=== PATIENT | female | born 1990 | race Caucasian/White ===

== ENCOUNTER 2019-11-24 11:54 | Observation (INO) ==
[2019-11-24 12:30] LABS: Amphetamine Screen,Urine Negative ng/mL (Cutoff=1000); Barbiturate Screen,Urine Negative ng/mL (Cutoff=200); Benzodiazepines Screen,Urine Negative ng/mL (Cutoff=200); Cannabinoid Screen,Urine Negative ng/mL (Cutoff = 50); Cocaine Screen,Urine Negative ng/mL (Cutoff= 300); Opiate Screen,Urine Negative ng/mL (Cutoff=300); Phencyclidine Screen,Urine Negative ng/mL (Cutoff=25)
== END 2019-11-24 13:00 | disposition home health service (06) ==
LOC: 1NENULAB
PROVIDERS: ADMIT Advanced Practice Midwife; ATTEND Advanced Practice Midwife

== ENCOUNTER → 2020-01-25 18:20 | Observation (INO) ==
[2020-01-25 17:34] LABS: Bilirubin,Urine Negative (Negative); Blood,Urine Negative (Negative); Clarity,Urine Cloudy (Clear); Color,Urine Yellow (Yellow); Glucose,Urine (UA) Normal (Normal); Ketones,Urine Negative (Negative); Leukocyte Esterase,Urine Negative (Negative); Nitrite,Urine Negative (Negative); Protein,Urine Negative (Neg-Trace); Specific Gravity,Urine 1.009 (1.010-1.025); Urobilinogen,Urine Normal (Normal)
[2020-01-25 17:36] LABS: Hyaline Casts,Urine None Seen per lpf (None-Few); RBC,Urine 0-3 per hpf (0-3); Squamous Epithelial Cell,Urine Many per lpf (None-Few); WBC,Urine 0-3 per hpf (0-3)
[2020-01-25 17:59] LABS: Bacteria,Urine Few per hpf (None-Few)
== END | disposition home or self-care (01) ==
LOC: 1NENULAB
PROVIDERS: ADMIT Advanced Practice Midwife; ATTEND Advanced Practice Midwife

== ENCOUNTER 2020-02-11 19:47 | Inpatient (IN) ==
[~2020-02-11 19:47] MED LIST: Aminoglycoside Consult 1 EACH MC ONE
[2020-02-11] MEDS ORDERED: Famotidine 20 MG/2 ML VIAL IVP PRN (20:11)
[2020-02-11] MEDS ORDERED: Metoclopramide 10 MG/2 ML VIAL IVP PRN (20:11)
[2020-02-11] MEDS ORDERED: EPHEDrine 50 MG/ML VIAL IVP PRN (20:18)
[2020-02-11 20:33] LABS: Basophils % 0.1 %; Eosinophils % 0.3 %; Hematocrit 37.9 % (35.3-44.9); Hemoglobin 12.4 g/dL (11.5-15.4); Immature Granulocytes % 0.4 % (0-4); Lymphocytes # 1.8 K/mcL (0.6-4.6); Lymphocytes % 13.3 %; Mean Corpuscular HGB Conc 32.7 g/dL (31.6-35.5); Mean Corpuscular Volume 85.6 fL (83.0-100.0); Mean Platelet Volume 10.2 fL (9.4-12.4); Monocytes # 0.6 K/mcL (0.0-1.3); Monocytes % 4.5 %; Neutrophils # 10.9 K/mcL (1.6-8.9); Platelet Count 250 K/mcL (140-400); Red Blood Count 4.43 M/mcL (3.82-4.97); Red Cell Distribution Width 14.6 % (11.5-14.5); Segmented Neutrophils % 81.4 %; White Blood Count 13.4 K/mcL (4.3-11.1)
[2020-02-11] MEDS: Ringers Solution, Lactated 1,000 ML IVC SCH (20:52)
[2020-02-11 21:46] LABS: Amphetamine Screen,Urine Negative ng/mL (Cutoff=1000); Barbiturate Screen,Urine Negative ng/mL (Cutoff=200); Benzodiazepines Screen,Urine Negative ng/mL (Cutoff=200); Cannabinoid Screen,Urine Negative ng/mL (Cutoff = 50); Cocaine Screen,Urine Negative ng/mL (Cutoff= 300); Opiate Screen,Urine Negative ng/mL (Cutoff=300); Phencyclidine Screen,Urine Negative ng/mL (Cutoff=25)
[2020-02-11] MEDS: Epidural Premix (fent/bupiv) 110 ML EP SCH (22:17)
[2020-02-11 23:04] LABS: Alanine Aminotransferase 8 Units/L (7-52); Aspartate Amino Transferase 16 Units/L (13-39); BUN/Creatinine Ratio 13 (6-26); Blood Urea Nitrogen 9 mg/dL (6-20); Lactate Dehydrogenase 170 Units/L (140-271); eGFR For African Americans > 60 (> 60); eGFR For Non-African Americans > 60 (> 60)
[2020-02-12] MEDS ORDERED: Oxytocin 20 units/ LR 1000 mL 20 UNIT/1,000 ML BAG IVC SCH ×2 (00:45→15:31)
[2020-02-12 01:09] LABS: Protein/Creatinine Ratio,Urine 0.14 mg/mg (0.00-0.20)
[2020-02-12] MEDS: Epidural Premix (fent/bupiv) 110 ML EP SCH ×2 (05:20→12:27)
[2020-02-12] MEDS: Ringers Solution, Lactated 1,000 ML IVC SCH ×2 (05:21→10:04)
[2020-02-12] MEDS ORDERED: Acetaminophen 325 MG TABLET PO ONE ×2 (07:43→15:23)
[2020-02-12] MEDS ORDERED: Clindamycin 900 MG/50 ML 900 MG/50 ML IV.SOLN IVPB SCH (08:15)
[2020-02-12] MEDS ORDERED: Ondansetron 4 MG/2 ML VIAL IVP PRN (08:23)
[2020-02-12] MEDS ORDERED: Gentamicin 80 MG in 0.9 % Sodium Chloride 100 ML IVPB SCH (09:00)
[2020-02-12] MEDS ORDERED: Gentamicin 50 MG in 0.9 % Sodium Chloride 100 ML IVPB SCH ×2 (09:00→21:00)
[2020-02-12] MEDS ORDERED: Acetaminophen 325 MG TABLET PO PRN (15:31)
[2020-02-12] MEDS ORDERED: Measles/Mumps/Rubella Vacc 0.5 ML VIAL SQ PRN (15:31)
[2020-02-12] MEDS ORDERED: Ibuprofen 600 MG TABLET PO PRN (15:31)
[2020-02-12] MEDS ORDERED: *HR* HYDROcodone/Acet 5/325 mg TABLET PO PRN (15:31)
[2020-02-12] MEDS ORDERED: Lanolin 7 G OINT...G. TP PRN (15:31)
[2020-02-12] MEDS ORDERED: Benzocaine/Menthol 56 GM AEROSOL SPRAY TP PRN (15:31)
[2020-02-12] MEDS: Clindamycin 900 MG/50 ML 900 MG/50 ML IV.SOLN IVPB SCH (17:01)
[2020-02-13] MEDS: Clindamycin 900 MG/50 ML 900 MG/50 ML IV.SOLN IVPB SCH ×2 (00:51→07:56)
[2020-02-13] MEDS: Prenatal Vit/FA 1 EACH TABLET PO SCH (07:56)
[2020-02-13] MEDS ORDERED: Gentamicin 80 MG in 0.9 % Sodium Chloride 100 ML IVPB ONE (09:00)
[2020-02-14 07:33] VITALS: BP 144/85
[2020-02-14] MEDS: Prenatal Vit/FA 1 EACH TABLET PO SCH (07:50)
== END 2020-02-14 10:45 | disposition home or self-care (01) | DRG 806 ==
LOC: 1NENULAB → 1NENUOBS 02-12 16:28
PROVIDERS: ADMIT Advanced Practice Midwife; ATTEND Advanced Practice Midwife